=== PATIENT | male | born 1965 | race Caucasian/White ===

== ENCOUNTER 2017-07-02 17:13 | Emergency (ER) | payer OTHER ==
[~2017-07-02] VITALS: Ht 175.3 cm; Wt 121.0 kg
[~2017-07-02 17:13] MED LIST: METO25 PO; MOBI7.5T PO; PERC5TAB12 PO; PRAV20 PO; PRED20 PO
[2017-07-02 17:29] VITALS: BP 245/125; PULSE 62; RESP 18; TEMP 98.1; O2SAT 97
[2017-07-02] MEDS ORDERED: MORPHINE SULFATE 4 MG/ML INJ IV PUSH ONE (18:15)
[2017-07-02] MEDS ORDERED: ONDANSETRON HCL 4 MG/2 ML VIAL IVP ONE (18:15)
--- NOTE | 2017-07-02 18:19 | PD ---
HPI Chief Complaint: Abdominal Pain Time Seen by Provider: 17:56 Travel History International Travel<30 days: No Contact w/Intl Traveler<30days: No Traveled to known affect area: No History of Present Illness HPI 51yo M with PMH of gallstone pancreatitis presents to the ED with c/o epigastric abdominal pain that radiates to bilateral upper abdomen to his back since 2pm today. Said it is in waves and feels like when he had gallstone pancreatitis. Associated with nausea and vomiting. Denies any fever, chest pain, sob, dysuria, hematuria, diarrhea. PFSH Past Medical History Blood Disorders: No Anxiety: Yes Depression: Yes Cancer: No Cardiac Catheterization: Yes (2003) Cardiovascular Problems: Yes High Cholesterol: Yes Chest Pain: Yes Diminished Hearing: No Endocrine: No Gastrointestinal Disorders: Yes (RECTAL BLEEDING 11/09/2009 GALLSTONES) Gout: Yes Genitourinary: No Hypertension: Yes Immune Disorder: No Musculoskeletal: Yes (GOUT) Neurologic: No Psychiatric: Yes Reproductive: No Respiratory: No Immunizations Current: Yes Pancreatitis: Yes ?: Not Past Surgical History Cardiac Surgery: Yes (HEART CATH 2003) Genitourinary Surgery: Yes (SCROTAL CYST REMOVED) Oral Surgery: Yes Other Surgery: Yes (STONE REMOVED FROM GALLBLADDER) Social History Alcohol Use: Yes ("SOCIALLY") Tobacco Use: No Substance Use: No Allergies-Medications (Allergen,Severity, Reaction): Coded Allergies: colchicine (Unverified Allergy, Severe, GI BLEEDING, 07/02/17) Reported Meds & Prescriptions Reported Meds & Active Scripts Active Zofran Odt (Ondansetron Odt) 4 Mg Tab 4 Mg SL Q6HR PRN Review of Systems Except as stated in HPI: all other systems reviewed are Neg Physical Exam Narrative GENERAL: 51yo M in mild distress. SKIN: Focused skin assessment warm/dry. HEAD: Atraumatic. Normocephalic. EYES: Pupils equal and round. No scleral icterus. No injection or drainage. ENT: No nasal bleeding or discharge. Mucous membranes pink and moist. NECK: Trachea midline. No JVD. CARDIOVASCULAR: Regular rate and rhythm. No murmur appreciated. RESPIRATORY: No accessory muscle use. Clear to auscultation. Breath sounds equal bilaterally. GASTROINTESTINAL: Abdomen soft, +TTP epigastric region. MUSCULOSKELETAL: No obvious deformities. No clubbing. No cyanosis. No edema. NEUROLOGICAL: Awake and alert. No obvious cranial nerve deficits. Motor grossly within normal limits. Normal speech. PSYCHIATRIC: Appropriate mood and affect; insight and judgment normal. Data Data Last Documented VS Vital Signs Date Time Temp Pulse Resp B/P (MAP) Pulse Ox O2 Delivery O2 Flow Rate FiO2 07/02/17 23:40 78 18 154/98 (116) 95 07/02/17 22:57 Room Air 07/02/17 17:29 98.1 Orders Orders Urinalysis - C+S If Indicated (07/02/17 17:40) Complete Blood Count With Diff (07/02/17 18:06) Comprehensive Metabolic Panel (07/02/17 18:06) Lipase (07/02/17 18:06) Prothrombin Time / Inr (Pt) (07/02/17 18:06) Act Partial Throm Time (Ptt) (07/02/17 18:06) Ct Abd/Pel W Iv Contrast(Rout) (07/02/17 18:06) Morphine Inj (Morphine Inj) (07/02/17 18:15) Ondansetron Inj (Zofran Inj) (07/02/17 18:15) Iohexol 350 Inj (Omnipaque 350 Inj) (07/02/17 19:01) Hydromorphone Pf Inj (Dilaudid Pf Inj) (07/02/17 20:00) Us Abdomen Gallbladder (07/02/17 ) Labetalol Inj (Trandate Inj) (07/02/17 22:30) Ed Discharge Order (07/02/17 23:05) Labs Laboratory Tests Test 07/02/17 18:15 07/02/17 18:30 White Blood Count 12.7 TH/MM3 Red Blood Count 5.84 MIL/MM3 Hemoglobin 17.1 GM/DL Hematocrit 48.7 % Mean Corpuscular Volume 83.3 FL Mean Corpuscular Hemoglobin 29.2 PG Mean Corpuscular Hemoglobin Concent 35.0 % Red Cell Distribution Width 14.3 % Platelet Count 270 TH/MM3 Mean Platelet Volume 8.2 FL Neutrophils (%) (Auto) 81.7 % Lymphocytes (%) (Auto) 12.3 % Monocytes (%) (Auto) 4.9 % Eosinophils (%) (Auto) 0.7 % Basophils (%) (Auto) 0.4 % Neutrophils # (Auto) 10.3 TH/MM3 Lymphocytes # (Auto) 1.6 TH/MM3 Monocytes # (Auto) 0.6 TH/MM3 Eosinophils # (Auto) 0.1 TH/MM3 Basophils # (Auto) 0.1 TH/MM3 CBC Comment AUTO DIFF Differential Total Cells Counted 100 Neutrophils % (Manual) 82 % Lymphocytes % 15 % Monocytes % 2 % Neutrophils # (Manual) 10.5 TH/MM3 Metamyelocytes 1 % Differential Comment FINAL DIFF MANUAL Atypical Lymphocytes % Platelet Estimate NORMAL Platelet Morphology Comment NORMAL Red Cell Morphology Comment NORMAL Prothrombin Time 10.0 SEC Prothromb Time International Ratio 1.0 RATIO Activated Partial Thromboplast Time 27.8 SEC Blood Urea Nitrogen 19 MG/DL Creatinine 1.30 MG/DL Random Glucose 150 MG/DL Total Protein 8.3 GM/DL Albumin 3.9 GM/DL Calcium Level 8.9 MG/DL Alkaline Phosphatase 102 U/L Aspartate Amino Transf (AST/SGOT) 17 U/L Alanine Aminotransferase (ALT/SGPT) 31 U/L Total Bilirubin 0.7 MG/DL Sodium Level 138 MEQ/L Potassium Level 4.6 MEQ/L Chloride Level 104 MEQ/L Carbon Dioxide Level 26.4 MEQ/L Anion Gap 8 MEQ/L Estimat Glomerular Filtration Rate 58 ML/MIN Lipase 381 U/L Urine Color YELLOW Urine Turbidity CLEAR Urine pH 5.5 Urine Specific [place] GREATER/EQUAL 1.030 Urine Protein 100 mg/dL Urine Glucose (UA) NEG mg/dL Urine Ketones NEG mg/dL Urine Occult Blood MOD Urine Nitrite NEG Urine Bilirubin NEG Urine Urobilinogen 1.0 MG/DL Urine Leukocyte Esterase NEG Urine RBC 0-3 /hpf Urine WBC 0-2 /hpf Urine Squamous Epithelial Cells 0-5 /hpf Microscopic Urinalysis Comment CULT NOT INDICATED MDM Medical Decision Making Medical Screen Exam Complete: Yes Emergency Medical Condition: Yes Differential Diagnosis Pancreatitis vs. colitis vs. nephrolithiasis vs. pyelonephritis Narrative Course 51yo M with upper abdominal pain radiating to bilateral back that started at 2pm today. Labs and CT pending. Pt given morphine and zofran. Sign out to next team to follow up work up and reevaluate. Diagnosis Primary Impression: Abdominal pain Qualified Codes: R10.13 - Epigastric pain Scripts Ondansetron Odt (Zofran Odt) 4 Mg Tab 4 MG SL Q6HR Y for Nausea/Vomiting, #10 TAB 0 Refills Prov: SalterLisa H. MD 07/02/17 Gerri Heredia DO Jul 02, 2017 18:19
[2017-07-02 18:35] LABS: AUTOMATED NEUTROPHIL # 10.3 TH/MM3 (1.8-7.7); BASOPHIL # 0.1 TH/MM3 (0-0.2); BASOPHIL % 0.4 % (0.0-2.0); EOSINOPHIL # 0.1 TH/MM3 (0-0.4); EOSINOPHIL % 0.7 % (0.0-4.0); HEMATOCRIT 48.7 % (39.0-51.0); HEMOGLOBIN 17.1 GM/DL (13.0-17.0); LYMPH % 12.3 % (9.0-44.0); LYMPHOCYTE # 1.6 TH/MM3 (1.0-4.8); MEAN CELL VOLUME 83.3 FL (80.0-100.0); MEAN CORPUSCULAR HEMOGLOBIN 29.2 PG (27.0-34.0); MEAN PLATELET VOLUME 8.2 FL (7.0-11.0); MONO % 4.9 % (0.0-8.0); MONOCYTE # 0.6 TH/MM3 (0-0.9); NEUT % 81.7 % (16.0-70.0); PLATELET COUNT 270 TH/MM3 (150-450); RED BLOOD COUNT 5.84 MIL/MM3 (4.50-5.90); RED CELL DISTRIBUTION WIDTH 14.3 % (11.6-17.2); WHITE BLOOD COUNT 12.7 TH/MM3 (4.0-11.0)
[2017-07-02 18:37] LABS: CHLORIDE 104 MEQ/L (98-107); SODIUM (NA) 138 MEQ/L (136-145)
[2017-07-02 18:40] LABS: CALCIUM 8.9 MG/DL (8.5-10.1)
[2017-07-02 18:41] LABS: ALBUMIN 3.9 GM/DL (3.4-5.0); BICARBONATE 26.4 MEQ/L (21.0-32.0); BLOOD UREA NITROGEN 19 MG/DL (7-18); GLUCOSE,RANDOM 150 MG/DL (74-106)
[2017-07-02 18:44] LABS: ALT (GPT) 31 U/L (12-78); AST (GOT) 17 U/L (15-37); GLOMERULAR FILTRATION RATE 58 ML/MIN (>89)
[2017-07-02 18:45] VITALS: BP 171/95; PULSE 73; RESP 16; O2SAT 96
[2017-07-02 18:45] LABS: TOTAL BILIRUBIN ADULT 0.7 MG/DL (0.2-1.0)
[2017-07-02 18:46] LABS: TOTAL PROTEIN 8.3 GM/DL (6.4-8.2)
[2017-07-02 18:47] LABS: ALKALINE PHOSPHATASE 102 U/L (45-117)
[2017-07-02 18:49] LABS: BILIRUBIN, URINE NEG (NEG); BLOOD, URINE MOD (NEG); GLUCOSE,URINE NEG (NEG); KETONE, URINE NEG (NEG); NITRITE,URINE NEG (NEG); PH, URINE 5.5 (5.0-8.5); URINE COLOR YELLOW (YELLW/STRAW); URINE LEUKOCYTE ESTERASE NEG (NEG)
[2017-07-02 18:54] LABS: RBC, URINE 0-3 /hpf (0-3); SQUAMOUS EPITHELIAL CELL URINE 0-5 /hpf (0-5); WBC, URINE 0-2 /hpf (0-5)
[2017-07-02 18:58] LABS: LYMPHOCYTES 15 % (9-44); METAMYELOCYTES 1 % (0-1); MONOCYTES 2 % (0-8); POLYS (SEG NEUTROPHILS) 82 % (16-70)
[2017-07-02] MEDS ORDERED: IOHEXOL 350 MG/ML 10 ML VIAL (for RAD DIAG) IVCONTRAST ONE (19:01)
[2017-07-02 19:08] LABS: NEUTROPHIL # MANUAL DIFF 10.5 TH/MM3 (1.8-7.7)
--- NOTE | 2017-07-02 19:27 | RADRPT ---
EXAM DATE/TIME: 07/02/2017 18:51 [facility] COMPARISON: No previous studies available for comparison. INDICATIONS : Epigastric and bilateral upper quadrant pain. Nausea and vomiting. IV CONTRAST: 90 cc Omnipaque 350 (iohexol) IV ORAL CONTRAST: No oral contrast ingested. RADIATION DOSE: 22.04 CTDIvol (mGy) ; Patient body habitus MEDICAL HISTORY : Cardiovascular disease. Pancreatitis. Hypertension.Gallstones. SURGICAL HISTORY : None. ENCOUNTER: Initial ACUITY: 1 day PAIN SCALE: 10/10 LOCATION: Bilateral upper quadrant TECHNIQUE: Volumetric scanning of the abdomen and pelvis was performed. Using automated exposure control and ad justment of the mA and/or kV according to patient size, radiation dose was kept as low as reasonably achievable to obtain optimal diagnostic quality images. DICOM format image data is available electro nically for review and comparison. FINDINGS: Lung bases are clear. Fatty liver. Spleen, adrenals, kidneys and pancreas demonstrate no acute findin gs. Small nonobstructing calcification upper pole left kidney. Probable gallstones in gallbladder. No biliary ductal dilatation. There is colonic diverticulosis, especially sigmoid without evidence for diverticulitis. CONCLUSION: 1. Gallstones in gallbladder without biliary ductal dilatation. 2. Fatty liver. 3. Nonobstructing calcification upper pole left kidney. 4. Colonic diverticulosis without evidence for diverticulitis. Billy Deng MD on July 02, 2017 at 19:22 Board Certified Radiologist. This report was verified electronically.
--- NOTE | 2017-07-02 19:31 | PD ---
Physical Exam Date Seen by Provider: Jul 02, 2017 Time Seen by Provider: 19:30 Narrative accepted in transfer of care from Dr Heredia GENERAL: SKIN: Warm and dry. HEAD: Normocephalic. EYES: No scleral icterus. No injection or drainage. NECK: Supple, trachea midline. No JVD or lymphadenopathy. CARDIOVASCULAR: Regular rate and rhythm without murmurs, gallops, or rubs. RESPIRATORY: Breath sounds equal bilaterally. No accessory muscle use. GASTROINTESTINAL: Abdomen soft, right upper quadrant tenderness to palpation diffusely greatest to right upper quadrant without clinical Lara's sign, nondistended. Data Data Last Documented VS Vital Signs Date Time Temp Pulse Resp B/P (MAP) Pulse Ox O2 Delivery O2 Flow Rate FiO2 07/02/17 23:00 77 160/88 (112) 07/02/17 22:57 18 95 Room Air 07/02/17 17:29 98.1 Orders Orders Urinalysis - C+S If Indicated (07/02/17 17:40) Complete Blood Count With Diff (07/02/17 18:06) Comprehensive Metabolic Panel (07/02/17 18:06) Lipase (07/02/17 18:06) Prothrombin Time / Inr (Pt) (07/02/17 18:06) Act Partial Throm Time (Ptt) (07/02/17 18:06) Ct Abd/Pel W Iv Contrast(Rout) (07/02/17 18:06) Morphine Inj (Morphine Inj) (07/02/17 18:15) Ondansetron Inj (Zofran Inj) (07/02/17 18:15) Iohexol 350 Inj (Omnipaque 350 Inj) (07/02/17 19:01) Hydromorphone Pf Inj (Dilaudid Pf Inj) (07/02/17 20:00) Us Abdomen Gallbladder (07/02/17 ) Labetalol Inj (Trandate Inj) (07/02/17 22:30) Ed Discharge Order (07/02/17 23:05) Labs Laboratory Tests Test 07/02/17 18:15 07/02/17 18:30 White Blood Count 12.7 TH/MM3 Red Blood Count 5.84 MIL/MM3 Hemoglobin 17.1 GM/DL Hematocrit 48.7 % Mean Corpuscular Volume 83.3 FL Mean Corpuscular Hemoglobin 29.2 PG Mean Corpuscular Hemoglobin Concent 35.0 % Red Cell Distribution Width 14.3 % Platelet Count 270 TH/MM3 Mean Platelet Volume 8.2 FL Neutrophils (%) (Auto) 81.7 % Lymphocytes (%) (Auto) 12.3 % Monocytes (%) (Auto) 4.9 % Eosinophils (%) (Auto) 0.7 % Basophils (%) (Auto) 0.4 % Neutrophils # (Auto) 10.3 TH/MM3 Lymphocytes # (Auto) 1.6 TH/MM3 Monocytes # (Auto) 0.6 TH/MM3 Eosinophils # (Auto) 0.1 TH/MM3 Basophils # (Auto) 0.1 TH/MM3 CBC Comment AUTO DIFF Differential Total Cells Counted 100 Neutrophils % (Manual) 82 % Lymphocytes % 15 % Monocytes % 2 % Neutrophils # (Manual) 10.5 TH/MM3 Metamyelocytes 1 % Differential Comment FINAL DIFF MANUAL Atypical Lymphocytes % Platelet Estimate NORMAL Platelet Morphology Comment NORMAL Red Cell Morphology Comment NORMAL Prothrombin Time 10.0 SEC Prothromb Time International Ratio 1.0 RATIO Activated Partial Thromboplast Time 27.8 SEC Blood Urea Nitrogen 19 MG/DL Creatinine 1.30 MG/DL Random Glucose 150 MG/DL Total Protein 8.3 GM/DL Albumin 3.9 GM/DL Calcium Level 8.9 MG/DL Alkaline Phosphatase 102 U/L Aspartate Amino Transf (AST/SGOT) 17 U/L Alanine Aminotransferase (ALT/SGPT) 31 U/L Total Bilirubin 0.7 MG/DL Sodium Level 138 MEQ/L Potassium Level 4.6 MEQ/L Chloride Level 104 MEQ/L Carbon Dioxide Level 26.4 MEQ/L Anion Gap 8 MEQ/L Estimat Glomerular Filtration Rate 58 ML/MIN Lipase 381 U/L Urine Color YELLOW Urine Turbidity CLEAR Urine pH 5.5 Urine Specific [place] GREATER/EQUAL 1.030 Urine Protein 100 mg/dL Urine Glucose (UA) NEG mg/dL Urine Ketones NEG mg/dL Urine Occult Blood MOD Urine Nitrite NEG Urine Bilirubin NEG Urine Urobilinogen 1.0 MG/DL Urine Leukocyte Esterase NEG Urine RBC 0-3 /hpf Urine WBC 0-2 /hpf Urine Squamous Epithelial Cells 0-5 /hpf Microscopic Urinalysis Comment CULT NOT INDICATED MDM Medical Record Reviewed: Yes Supervised Visit with JEREMIAH: No Interpretation(s) UA: grossly wnl Last Impressions Abdomen/Pelvis CT 07/02/171805 Signed Impressions: Service Date/Time: June 18:51 - CONCLUSION: 1. Gallstones in gallbladder without biliary ductal dilatation. 2. Fatty liver. 3. Nonobstructing calcification upper pole left kidney. 4. Colonic diverticulosis without evidence for diverticulitis. Billy Deng MD CBC & BMP Diagram 07/02/17 18:15 Total Protein 8.3 H, Albumin 3.9, Calcium Level 8.9, Alkaline Phosphatase 102, Aspartate Amino Transf (AST/SGOT) 17, Alanine Aminotransferase (ALT/SGPT) 31, Total Bilirubin 0.7 Vital Signs Date Time Temp Pulse Resp B/P (MAP) Pulse Ox O2 Delivery O2 Flow Rate FiO2 07/02/17 19:38 83 181/95 (123) 07/02/17 18:45 73 16 171/95 (120) 96 07/02/17 18:06 16 07/02/17 17:29 98.1 62 18 245/125 (165) 97 Differential Diagnosis accepted in transfer of care from Dr Heredia; please refer to her dictation Narrative Course accepted in transfer of care from Dr Heredia; follow up CT and disposition CBC with automated differential mild leukocytosis however other labs grossly within normal range including complete metabolic panel lipase and urinalysis; CT abdomen pelvis shows cholelithiasis without ductal dilatation no report of inflammatory changes about the pancreas. Patient informed of results on exam remains tender to the right upper quadrant; patient administered a one-time dose of Dilaudid 1 mg IV has already received Zofran 4 mg IV and morphine sulfate 4 mg IV without symptomatic relief also noted to have elevated blood pressure however does complain of significant pain 8/10 in intensity. Patient will be reassessed after pain medication administration will obtain sound of the gallbladder. At this point time patient appears to be consistent with hypertensive and biliary colic; patient will be reassessed after pain management and blood pressure management. Diagnosis Primary Impression: Biliary colic Additional Impression: Hypertension Referrals: Primary Care Physician 1 day Patient Instructions: Narcotic given in the ED, General Instructions Additional Instruction: Follow clear liquid diet for next 12-24 hours; advance as tolerated to bland/ brat diet then regular diet avoiding fried and fatty food Follow-up with your primary care provider Return to the emergency department for pain fever vomiting or any concerns Take blood pressure medication as per Med/Other Pt SpecificInfo: Prescription(s) given Scripts Ondansetron Odt (Zofran Odt) 4 Mg Tab 4 MG SL Q6HR Y for Nausea/Vomiting, #10 TAB 0 Refills Prov: Lisa Gonzalez MD 07/02/17 Disposition: 01 DISCHARGE HOME Condition: Stable Lisa Gonzalez MD Jul 02, 2017 19:31
[2017-07-02 19:38] VITALS: BP 181/95; PULSE 83
[2017-07-02] MEDS ORDERED: HYDROmorphone HCL PF 2 MG/ML VIAL IV PUSH ONE (20:00)
--- NOTE | 2017-07-02 22:17 | RADRPT ---
EXAM DATE/TIME: 07/02/2017 21:15 [facility] COMPARISON: No previous studies available for comparison. INDICATIONS : Right upper quadrant pain. MEDICAL HISTORY : Cholelithiasis. Pancreatitis. Hypercholesterolemia. Hypertension. Hearing loss. Gout. Depression. Anx iety. Measles. SURGICAL HISTORY : Stone removed from gallbladder. Cardiac catheterization. Scrotal cyst removal. ENCOUNTER: Initial ACUITY: 1 day PAIN SCORE: 2/10 LOCATION: Right upper quadrant MEASUREMENTS: LIVER: 21.9 cm length COMMON DUCT: 7 mm RIGHT KIDNEY: 11.4 x 5.5 x 5.8 cm FINDINGS: Pancreas not well-visualized. Liver enlarged to 22 cm with fatty infiltration. Multiple gallstones an d gallbladder sludge present. Gallbladder wall mildly thickened to 4 mm. Common bile duct measures 7 mm. Right kidney unremarkable. No free fluid. CONCLUSION: 1. Gallstones with gallbladder sludge and mild gallbladder wall thickening. Negative sonographic Murp hy's sign. Common bile duct within normal limits. 2. Fatty liver enlarged to 22 cm. Billy Deng MD on July 02, 2017 at 22:13 Board Certified Radiologist. This report was verified electronically.
[2017-07-02] MEDS ORDERED: ZOFR4TAB3 SL (22:29)
[2017-07-02] MEDS ORDERED: LABETALOL HCL 100 MG/20 ML VIAL IV PUSH ONE (22:30)
[2017-07-02 22:57] VITALS: BP 186/93; PULSE 89; RESP 18; O2SAT 95
[2017-07-02 23:00] VITALS: BP 160/88; PULSE 77
[2017-07-02 23:40] VITALS: BP 154/98
== END 2017-07-02 23:45 | disposition home or self-care (01) ==
LOC: PHED 17:13
DX: R10.13 Epigastric pain (principal); K80.50 Calculus of bile duct without cholangitis or cholecystitis without obstruction; I10 Essential (primary) hypertension; K80.20 Calculus of gallbladder without cholecystitis without obstruction; K85.90 Acute pancreatitis without necrosis or infection, unspecified; R11.2 Nausea with vomiting, unspecified
CPT/HCPCS: 74177; 76705; 80053; 81001; 83690; 85007; 85027; 85610; 85730; 96374; 96375; 99285; J1170; J2270; J2405; Q9967